=== PATIENT | male | born 1940 | race Caucasian/White ===

== ENCOUNTER 2017-01-13 16:00 | Emergency (ER) | payer OTHER ==
[2017-01-13 16:09] VITALS: BP 133/54; PULSE 72; RESP 16; TEMP 98.6; O2SAT 95
--- NOTE | 2017-01-13 16:25 | CPEKG ---
Heart Rate: 73 RR Interval: 822 P-R Interval: 156 QRSD Interval: 80 QT Interval: 400 QTC Interval: 441 P Mcgregor: 42 QRS Mcgregor: 21 T Wave Mcgregor: 28 EKG Severity - NORMAL ECG - EKG Impression: SINUS RHYTHM Electronically Signed By: Lawson Archibald 13-Jan-2017 17:28:27
[2017-01-13] MEDS ORDERED: NS 1,000 ML IV ONE (16:58)
[2017-01-13] MEDS ORDERED: ONDANSETRON 4 MG/2 ML VIAL IVP ONE (16:59)
[2017-01-13 17:13] LABS: ALANINE AMINOTRANSFERASE 23 IU/L (21-72); ALBUMIN 4.1 g/dL (3.5-5.0); ALKALINE PHOSPHATASE 78 IU/L (38-126); ANION GAP 14 mEq/L (8-16); ASPARTATE AMINOTRANSFERASE 44 IU/L (17-59); BILIRUBIN,TOTAL 1.1 mg/dL (0.1-1.4); BILIRUBIN-CONJUGATED 0.7 mg/dL (0.0-0.5); BILIRUBIN-UNCONJUGATED 0.4 mg/dL (0.0-1.1); CALCIUM 9.4 mg/dL (8.5-10.4); CARBON DIOXIDE 19 mEq/l (22-31); CHLORIDE 106 mEq/L (97-110); CREATININE 1.6 mg/dL (0.7-1.3); GLOMERULAR FILTRATION RATE 42; GLUCOSE 113 mg/dL (70-100); POTASSIUM 4.4 mEq/L (3.5-5.2); SODIUM 139 mEq/L (134-144); SPECIMEN HEMOLYSIS 160; TOTAL PROTEIN 7.1 g/dL (6.3-8.2)
[2017-01-13 17:16] LABS: ADD DIFF? NO; ADD MORPH? NO; ATYPICAL LYMPHOCYTE FLAG 0 (0-99); FRAGMENT RBC FLAG 0 (0-99); LEFT SHIFT FLG 0 (0-99)
--- NOTE | 2017-01-13 17:27 | EDPHY ---
Mental Health General Smoking Status: Never smoked - Objective Vital Signs: Initial Vital Signs Temperature (C) 37 C 01/13/17 16:05 Heart Rate 72 01/13/17 16:05 Respiratory Rate 16 01/13/17 16:05 Blood Pressure 133/54 H 01/13/17 16:05 O2 Sat (%) 95 01/13/17 16:05 O2 Delivery Mode Room Air Allergies/Adverse Reactions: No Known Allergies Allergy (Unverified 02/06/12 08:26) Home Medications: Medication Instructions Recorded Centrum Silver Men Tablet 01/13/17 Leuprolide Acetate [Lupron Depot 01/13/17 22.5 MG (RX)] Levothyroxine [Synthroid 50 mcg 01/13/17 (*)] Lisinopril 01/13/17 Silodosin [RAPAFLO] 01/13/17 Tamsulosin HCl 01/13/17 Warfarin Sodium 01/13/17 Departure - Departure Referrals: NONE *PRIMARY CARE P,. [Primary Care Provider] - As per Instructions
--- NOTE | 2017-01-13 17:28 | EDPHY ---
H & P Stated Complaint: dizzy weak, abdominal pain, Time Seen by Provider: 01/13/17 16:34 HPI/ROS: CHIEF COMPLAINT: Vertigo, vomiting, mild low back pain and epigastric pain HISTORY OF PRESENT ILLNESS: The patient presents to the ED with a history of vertigo yesterday which resulted in several episodes of vomiting. The patient reports since that time he has had symptoms of lightheadedness but the vertigo has resolved. He has developed some mild epigastric pain and low back pain. Patient denies fever, cough, congestion, dysuria, chills or focal neurologic symptoms. He has no complaints of headache or fall. The patient states that his symptoms of epigastric pain or currently mild in nature. REVIEW OF SYSTEMS: A comprehensive 10 point review of systems is otherwise negative aside from elements mentioned in the history of present illness. Source: Patient - Personal History Current Tetanus Diphtheria and Acellular Pertussis (TDAP): Yes Tetanus Vaccine Date: 2005 - Medical/Surgical History Hx Asthma: No Hx Chronic Respiratory Disease: No Hx Diabetes: No Hx Cardiac Disease: No Hx Renal Disease: No Hx Cirrhosis: No Hx Alcoholism: No Hx HIV/AIDS: No Hx Splenectomy or Spleen Trauma: No Other PMH: TURP/Bilat PE/ only 1 functioning kidney - Social History Smoking Status: Never smoked - Physical Exam Exam: General Appearance: Alert, no distress Eyes: Pupils equal and round no pallor or injection ENT, Mouth: Mucous membranes moist Respiratory: There are no retractions, lungs are clear to auscultation Cardiovascular: Regular rate and rhythm Gastrointestinal: Minimal epigastric tenderness to palpation Neurological: A&O, normal motor function, normal sensory exam, normal cranial nerves Skin: Warm and dry, no rashes Musculoskeletal: Neck is supple nontender Extremities: symmetrical, full range of motion Constitutional: Initial Vital Signs Temperature (C) 37 C 01/13/17 16:05 Heart Rate 72 01/13/17 16:05 Respiratory Rate 16 01/13/17 16:05 Blood Pressure 133/54 H 01/13/17 16:05 O2 Sat (%) 95 01/13/17 16:05 O2 Delivery Mode Room Air Allergies/Adverse Reactions: No Known Allergies Allergy (Unverified 02/06/12 08:26) Home Medications: Medication Instructions Recorded Centrum Silver Men Tablet 01/13/17 Leuprolide Acetate [Lupron Depot 01/13/17 22.5 MG (RX)] Levothyroxine [Synthroid 50 mcg 01/13/17 (*)] Lisinopril 01/13/17 Silodosin [RAPAFLO] 01/13/17 Tamsulosin HCl 01/13/17 Warfarin Sodium 01/13/17 Medical Decision Making - Diagnostics EKG Interpretation: EKG: Complete interpretation has been separately recorded in the [email or web address] archive. Summary impression: Sinus rhythm, no ischemic changes are noted ED Course/Re-evaluation: The patient presents to the ED with multiple complaints. He had vertigo and vomiting yesterday. Since that time he has had some vague epigastric pain. The patient denies any hematuria, headache, numbness or additional acute complaints. The patient is anticoagulated for pulmonary embolism chronically. He has no history of melena or hematemesis. The patient's EKG demonstrates no evidence of ischemic changes. The patient's troponin is normal. The patient did have some mild epigastric tenderness to palpation. He was taken for noncontrast CT scan of the abdomen pelvis to evaluate his abdominal aorta. The results of that study demonstrated no evidence of intra-abdominal disease. The patient did receive IV Zofran. He received serial examinations in the ED by myself over 2.5 hour period. Discussion: The patient presents to the ED with mild abdominal pain which is likely secondary to his vomiting yesterday. There is no evidence of an acute intra-abdominal process at this point time. Additionally, the patient had symptoms of fairly classic peripheral vertigo yesterday. The patient has no symptoms suggestive of a central vertigo at this point time. The patient will be discharged home with customary aftercare instructions. He is given a prescription for Zofran. He is advised to use meclizine as needed for dizziness. Differential Diagnosis: Differential diagnosis considered includes peripheral vertigo, central vertigo, cardiac ischemia, arrhythmia, myocardial infarction, perforation, obstruction - Data Points Laboratory Results: Laboratory Results 01/13/17 17:35 01/13/17 16:30 01/13/17 01/13/17 01/13/17 18:28 17:35 16:30 WBC 7.00 10^3/uL 10^3/uL (3.80-9.50) RBC 4.31 10^6/uL L 10^6/uL (4.40-6.38) Hgb 13.5 g/dL L g/dL (13.7-17.5) Hct 39.9 % L % (40.0-51.0) MCV 92.6 fL fL (81.5-99.8) MCH 31.3 pg pg (27.9-34.1) MCHC 33.8 g/dL g/dL (32.4-36.7) RDW 13.9 % % (11.5-15.2) Plt Count 224 10^3/uL 10^3/uL (150-400) MPV 10.2 fL fL (8.7-11.7) Neut % (Auto) 60.9 % % (39.3-74.2) Lymph % (Auto) 29.4 % % (15.0-45.0) Callahan % (Auto) 7.4 % % (4.5-13.0) Eos % (Auto) 1.6 % % (0.6-7.6) Baso % (Auto) 0.4 % % (0.3-1.7) Nucleat RBC Rel Count 0.0 % % (0.0-0.2) Absolute Neuts (auto) 4.26 10^3/uL 10^3/uL (1.70-6.50) Absolute Lymphs (auto) 2.06 10^3/uL 10^3/uL (1.00-3.00) Absolute Monos (auto) 0.52 10^3/uL 10^3/uL (0.30-0.80) Absolute Eos (auto) 0.11 10^3/uL 10^3/uL (0.03-0.40) Absolute Basos (auto) 0.03 10^3/uL 10^3/uL (0.02-0.10) Absolute Nucleated RBC 0.00 10^3/uL 10^3/uL (0-0.01) Immature Gran % 0.3 % % (0.0-1.1) Immature Gran # 0.02 10^3/uL 10^3/uL (0.00-0.10) PT 27.9 SEC H SEC REJ (12.0-15.0) INR 2.57 H REJ (0.83-1.16) APTT 35.4 SEC SEC (23.0-38.0) Sodium Potassium Chloride Carbon Dioxide Anion Gap BUN Creatinine Estimated GFR Glucose Calcium Total Bilirubin Conjugated Bilirubin Unconjugated Bilirubin AST ALT Alkaline Phosphatase Troponin I Total Protein Albumin Lipase Specimen Hemolysis 01/13/17 01/13/17 01/13/17 16:30 16:30 16:30 WBC REJ RBC Not Reported Hgb Not Reported Hct Not Reported MCV Not Reported MCH Not Reported MCHC Not Reported RDW Not Reported Plt Count Not Reported MPV Not Reported Neut % (Auto) Not Reported Lymph % (Auto) Not Reported Callahan % (Auto) Not Reported Eos % (Auto) Not Reported Baso % (Auto) Not Reported Nucleat RBC Rel Count Not Reported Absolute Neuts (auto) Not Reported Absolute Lymphs (auto) Not Reported Absolute Monos (auto) Not Reported Absolute Eos (auto) Not Reported Absolute Basos (auto) Not Reported Absolute Nucleated RBC Not Reported Immature Gran % Not Reported Immature Gran # Not Reported PT INR APTT Sodium 139 mEq/L mEq/L (134-144) Potassium 4.4 mEq/L mEq/L (3.5-5.2) Chloride 106 mEq/L mEq/L (97-110) Carbon Dioxide 19 mEq/l L mEq/l (22-31) Anion Gap 14 mEq/L mEq/L (8-16) BUN 22 mg/dL mg/dL (7-23) Creatinine 1.6 mg/dL H mg/dL (0.7-1.3) Estimated GFR 42 Glucose 113 mg/dL H mg/dL (70-100) Calcium 9.4 mg/dL mg/dL (8.5-10.4) Total Bilirubin 1.1 mg/dL mg/dL (0.1-1.4) Conjugated Bilirubin 0.7 mg/dL H mg/dL (0.0-0.5) Unconjugated Bilirubin 0.4 mg/dL mg/dL (0.0-1.1) AST 44 IU/L IU/L (17-59) ALT 23 IU/L IU/L (21-72) Alkaline Phosphatase 78 IU/L IU/L (38-126) Troponin I 0.015 ng/mL ng/mL (0-0.034) Total Protein 7.1 g/dL g/dL (6.3-8.2) Albumin 4.1 g/dL g/dL (3.5-5.0) Lipase 53.0 IU/L IU/L (23-300) Specimen Hemolysis 160 Medications Given: Discontinued Medications Sodium Chloride (Ns) 1,000 mls @ 0 mls/hr IV ONCE ONE PRN Reason: Wide Open Stop: 01/13/17 16:59 Last Admin: 01/13/17 17:22 Dose: 1,000 mls Ondansetron HCl (Zofran) 4 mg IVP EDNOW ONE Stop: 01/13/17 17:00 Last Admin: 01/13/17 17:23 Dose: 4 mg Departure - Departure Disposition: Home, Routine, Self-Care Clinical Impression: Epigastric pain, Vertigo, Vomiting Condition: Good Instructions: Vertigo (ED) Additional Instructions: 1. Zofran as needed for nausea. 2. Meclizine as needed for dizziness. 3. The testing done in the emergency department today demonstrates no evidence of a significant abdominal issue. Your cardiac testing and neurologic testing are within normal limits. I do believe you experienced vertigo yesterday. This is typically a benign self-limited experience. You should return to the ED immediately for severe headache, recurrent vertigo, numbness, weakness, worsening abdominal pain or other concerns. 4. Please follow up with your primary care provider as needed.
[2017-01-13 17:33] LABS: ADD SCAN? NO; LIPEMIA HEMOLYSIS FLAG 0 (0-99); PLATELET CLUMPS FLAG 0 (0-99)
[2017-01-13 17:48] LABS: % IMMATURE GRANULYOCYTES 0.3 % (0.0-1.1); ABSOLUTE IMMATURE GRANULOCYTES 0.02 10^3/uL (0.00-0.10); ADD DIFF? NO; ADD MORPH? NO; ADD SCAN? NO; ATYPICAL LYMPHOCYTE FLAG 0 (0-99); FRAGMENT RBC FLAG 0 (0-99); HEMATOCRIT 39.9 % (40.0-51.0); HEMOGLOBIN 13.5 g/dL (13.7-17.5); LEFT SHIFT FLG 0 (0-99); LIPEMIA HEMOLYSIS FLAG 90 (0-99); MEAN CELL HEMOGLOBIN 31.3 pg (27.9-34.1); MEAN CELL HEMOGLOBIN CONCENTR. 33.8 g/dL (32.4-36.7); MEAN CELL VOLUME 92.6 fL (81.5-99.8); MEAN PLATELET VOLUME 10.2 fL (8.7-11.7); PLATELET CLUMPS FLAG 0 (0-99); PLATELET COUNT 224 10^3/uL (150-400); RED BLOOD CELL COUNT 4.31 10^6/uL (4.40-6.38); RED CELL DISTRIBUTION WIDTH 13.9 % (11.5-15.2)
[2017-01-13] MEDS ORDERED: IOPAMIDOL (ISOVUE-300) 100 ML BTL ONE (18:33)
[2017-01-13 18:42] LABS: INR 2.57 (0.83-1.16); PROTIME(PATIENT) 27.9 SEC (12.0-15.0)
[2017-01-13 18:43] LABS: APTT 35.4 SEC (23.0-38.0)
== END 2017-01-13 19:15 | disposition home or self-care (01) ==
DX: R10.13 Epigastric pain (principal); R42 Dizziness and giddiness; R11.10 Vomiting, unspecified; Z79.01 Long term (current) use of anticoagulants
CPT/HCPCS: 74176; 93005; 96361; 96374; 99285; J2405; Q9967